=== PATIENT | female | born 1955 | race Caucasian/White ===

== ENCOUNTER → 2023-12-31 08:14 | Outpatient (REF) | payer MEDICARE, OTHER, SELFPAY ==
[2023-12-31 11:01] LABS: Free T4 1.06 ng/dl (0.78-2.19)
[2023-12-31 11:15] LABS: TSH 3.31 uIU/ml (0.47-4.68)
== END ==
LOC: RAD 08:14
PROVIDERS: ATTENDING PHYSICIAN Internal Medicine Endocrinology, Diabetes & Metabolism; FAMILY PHYSICIAN Family Medicine
DX: C73 Malignant neoplasm of thyroid gland (principal); E04.2 Nontoxic multinodular goiter; E03.9 Hypothyroidism, unspecified
CPT/HCPCS: 36415; 76536; 84439; 84443

== ENCOUNTER → 2024-12-20 12:24 | Outpatient (REF) | payer MEDICARE, OTHER, SELFPAY ==
[2024-12-20 16:47] LABS: TSH 3.28 uIU/ml (0.47-4.68)
== END ==
LOC: HWRAD 12:24
PROVIDERS: ATTENDING PHYSICIAN Internal Medicine Endocrinology, Diabetes & Metabolism; FAMILY PHYSICIAN Family Medicine
DX: E03.9 Hypothyroidism, unspecified (principal); E04.2 Nontoxic multinodular goiter
CPT/HCPCS: 36415; 76536; 84439; 84443